=== PATIENT | female | born 1970 | race Hispanic/Latino ===

== ENCOUNTER → 2018-03-12 | Outpatient (CLI) | payer BC | LOC: MAMMO 08:57 | PROVIDERS: ATTEND Internal Medicine | DX: Z12.31 Encounter for screening mammogram for malignant neoplasm of breast (principal) | CPT/HCPCS: 77067 ==

== ENCOUNTER → 2018-04-08 | Outpatient (CLI) | payer BC ==
--- NOTE | 2018-04-08 16:14 | Diagnostic Imaging Report ---
#[id number] - MGDXLT #UNILATERAL LEFT DIGITAL DIAGNOSTIC MAMMOGRAM WITH SPOT COMPRESSION AND MAGNIFICATION: 04/08/2018 Comparison is made to exams dated: 03/12/2018 mammogram - [facility] and 04/02/2015 mammogram - [facility]. Current study contains 3 films. The tissue of the left breast is heterogeneously dense. This may lower the sensitivity of mammography. The area of new calcification in the left breast may be vascular in origin. A one time interim 6 month followup mammogram is recommended to demonstrate stability. Scattered additional calcifications appear bening. IMPRESSION: PROBABLY BENIGN A follow-up mammogram in 6 months is recommended to demonstrate stability. The patient has been or will be notified of the results. Venkat Childress Jr., D.O. cw/:04/08/2018 15:03:13 Kinesiotherapist: Karissa SOFIA)(Becca), [facility] letter sent: Followup Recommended Mammogram BI-RADS: 3 Probably benign
== END ==
LOC: MAMMO 12:47
PROVIDERS: ATTEND Internal Medicine
DX: R92.8 Other abnormal and inconclusive findings on diagnostic imaging of breast (principal)

== ENCOUNTER → 2019-01-06 | Outpatient (CLI) | payer BC ==
--- NOTE | 2019-01-07 09:09 | Diagnostic Imaging Report ---
#[id number] - MGDXLT #UNILATERAL LEFT DIGITAL DIAGNOSTIC MAMMOGRAM WITH CAD WITH MAGNIFICATION SHORT-TERM FOLLOW-UP: 01/06/2019 Comparison is made to exams dated: 04/08/2018 mammogram, 03/12/2018 mammogram - [facility] and 04/02/2015 mammogram - [facility]. Current study contains 6 films. The tissue of the left breast is heterogeneously dense. This may lower the sensitivity of mammography. Current study was also evaluated with a Computer Aided Detection (CAD) system. There is little interval change in several areas of grouped calcifications. Most of these do not have a suspicious shape. No significant masses, calcifications, or other findings are seen in the breast. IMPRESSION: PROBABLY BENIGN A follow-up mammogram in 6 months is recommended to demonstrate stability. The patient has been notified of the results and the need for followup. Venkat Childress Jr., D.O. cw/:01/06/2019 17:42:01 Aircraft Maintenance Manager: Karissa OVALLE(Kartik)(Becca), [facility] letter sent: Followup Recommended Mammogram BI-RADS: 3 Probably benign
== END ==
LOC: MAMMO 11:53
PROVIDERS: ATTEND Internal Medicine
DX: Z12.31 Encounter for screening mammogram for malignant neoplasm of breast (principal)

== ENCOUNTER → 2019-01-29 | Outpatient (CLI) | payer BC ==
--- NOTE | 2019-01-29 16:19 | Diagnostic Imaging Report ---
Exam: Head CT without contrast History: Trauma sharp headache with pain and pressure. Comparison studies: None Technique: Axial images were obtained from the skull base to the vertex. Coronal and sagittal images reconstructed from the axial data. Dose modulation, iterative reconstruction, and/or weight based adjustment of the mA/kV was utilized to reduce the radiation dose to as low as reasonably achievable. Radiation dose: Total DLP: 921 mGy*cm. Estimated effective dose: DLP x 0.015 Intravenous contrast: None Findings: Scalp: No abnormalities. Bones: No fractures, blastic or lytic lesions. Brain sulci: Appropriate for age. Ventricles: Normal in size and configuration. No hydrocephalus. Extra-axial spaces: No masses, no fluid collection. Parenchyma: No abnormal densities. No masses, acute hemorrhage, acute or chronic vascular insults. Sellar/suprasellar region: No abnormalities. Craniocervical junction: Patent foramen magnum. No Chiari one malformation. Middle ear and mastoid cavities: Clear. Included paranasal sinuses: The sphenoid sinuses, partially imaged ethmoid air cells, left frontal sinus and hypoplastic right frontal sinus are clear. IMPRESSION: No intracranial abnormalities. Signed by: Dr. Binu Mesa M.D. on 01/29/2019 4:16 PM
== END ==
LOC: CT 15:06
PROVIDERS: ATTEND Internal Medicine
DX: R51 Headache (principal)
CPT/HCPCS: 70450

== ENCOUNTER 2019-02-02 16:37 | Emergency (ER) | payer BC ==
[~2019-02-02] VITALS: Ht 149.9 cm; Wt 87.1 kg
--- OUTSIDE RECORDS SUMMARY | 2019-02-02 16:39 | XMS REPORT ---
[facility] Address Unknown Phone Unavailable Care Team Providers Care Heading Machine Operator Name Role Phone Becca AVALOS Unavailable Unavailable Problems This patient has no known problems. Allergies, Adverse Reactions, Alerts This patient has no known allergies or adverse reactions. Medications This patient has no known medications. Results Test Description Test Time Test Comments Text Results Atomic Results Result Comments CT BRAIN WO 2019-01-29 16:12:00 [place] [address] Patient Name: GWENDOLYN HICKS MR #: [id number] : 1970 Age/Sex: 48/F Req #: [id number] Adm Physician: Ordered by: BRANDON AVALOS MD Report #: [id number] Location: CT Room/Bed: Procedure: [id number] CT/CT BRAIN WO Exam Date: 01/29/19 Exam Time: 1530 REPORT STATUS: Signed Exam: Head CT without contrast History: Trauma sharp headache with pain and pressure. Comparison studies: None Technique: Axial images were obtained from the skull base to the vertex. Coronal and sagittal images reconstructed from the axial data. Dose modulation, iterative reconstruction, and/or weight based adjustment of the mA/kV was utilized to reduce the radiation dose to as low as reasonably achievable. Radiation dose: Total DLP: 921 mGy*cm. Estimated effective dose: DLP x 0.015 Intravenous contrast: None Findings: Scalp: No abnormalities. Bones: No fractures, blastic or lytic lesions. Brain sulci: Appropriate for age. Ventricles: Normal in size and configuration. No hydrocephalus. Extra-axial spaces: No masses, no fluid collection. Parenchyma: No abnormal densities. No masses, acute hemorrhage, acute or chronic vascular insults. Sellar/suprasellar region: No abnormalities. Craniocervical junction: Patent foramen magnum. No Chiari one malformation. Middle ear and mastoid ca vities: Clear. Included paranasal sinuses: The sphenoid sinuses, partially imaged ethmoid air cells, left frontal sinus and hypoplastic right frontal sinus are clear. IMPRESSION: No intracranial abnormalities. Signed by: Dr. Alma Mesa M.D. on 01/29/2019 4:16 PM Dictated By: ALMA MESA MD 15 Transcribed By: CHINA on 01/29/191615 COPY TO: BRANDON AVALOS MD MAMMOGRAPHY DIGITAL DX UNI LT 2019-01-06 16:11:00 [place] [address] Patient Name: GWENDOLYN HICKS MR #: [id number] : 1970 Age/Sex: 48/F Req #: [id number] Adm Physician: Ordered by: BRANDON AVALOS MD Report #: [id number] Location: [facility] Room/Bed: Procedure: [id number] MG/MAMMOGRAPHY DIGITAL DX UNI LT Exam Date: 01/06/19 Exam Time: 1600 REPORT STATUS: Signed #[id number] - MGDXLT #UNILATERAL LEFT DI GITAL DIAGNOSTIC MAMMOGRAM WITH CAD WITH MAGNIFICATION SHORT-TERM FOLLOW-UP: 01/06/2019 Comparison is made to exams dated: 04/08/2018 mammogram, 03/12/2018 mammogram - [facility] and 04/02/2015 mammogram - [facility]. Current study contains 6 films. The tissue of the left breast is heterogeneously dense. This may lower the sensitivity of mammography. Current study was also evaluated with a Computer Aided Detection (CAD) system. There is little interval change in several areas of grouped calcifications. Most of these do not have a suspicious shape. No significant masses, calcifications, or other findings are seen in the breast. IMPRESSION: PROBABLY BENIGN A follow-up mammogram in 6 months is recommended to demonstrate stability. The patient has been notified of the results and the need for followup. Daren Childress Jr., D.O. cw/:01/06/2019 17:42:01 Property Caretaker: Karissa OVALLE (R)(Becca), [facility] letter sent: Followup Recommended Mammogram BI-RADS: 3 Probably benign Dictated By: DAREN CHILDRESS DO 41 Transcribed By: JUAN on 01/06/191741 COPY TO: BRANDON AVALOS MD MAMMOGRAPHY DIGITAL DX UNI LT [place] [address] Patient Name: GWENDOLYN HICKS MR #: [id number] : 1970 Age/Sex: 47/F Req #: [id number] Adm Physician: Ordered by: BRANDON AVALOS MD Report #: [id number] Location: MAMMO Room/Bed: Procedure: [id number] MG/MAMMOGRAPHY DIGITAL DX UNI LT Exam Date: 04/08/18 Exam Time: 1313 REPORT STATUS: Signed #[id number] - MGDXLT #UNILATERAL LEFT DIGITAL DIAGNOSTIC MAMMOGRAM WITH SPOT COMPRESSION AND MAGNIFICATION: 04/08/2018 Comparison is made to exams dated: 03/12/2018 mammogram - [facility] and 04/02/2015 mammogram - [facility]. Current study contains 3 films. The tissue of the left breast is heterogeneously dense. This may lower the sensitivity of mammography. The area of new calcification in the left breast may be vascular in origin. A one time interim 6 month followup mammogram is recommended to demonstrate stability. Scattered additional calcifications appear bening. IMPRESSION: PROBABLY BENIGN A follow-up mammogram in 6 months is recommended to demonstrate stability. The patient has been or will be notified of the results. Daren Childress Jr., D.O. cw/:04/08/2018 15:03:13 Property Caretaker: Karissa SOFIA)(Becca), [facility] letter sent: Followup Recommended Mammogram BI-RADS: 3 Probably benign Dictated By: DAREN CHILDRESS DO 1503 Transcribed By: JUAN on 04/08/18 1503 COPY TO: BRANDON AVALOS MD MAMMOGRAPHY DIGITAL SCR BILAT [place] [address] Patient Name: GWENDOLYN HICKS MR #: [id number] : 1970 Age/Sex: 47/F Req #: [id number] Adm Physician: Ordered by: BRANDON AVALOS MD Report #: [id number] Location: MAMMO Room/Bed: Procedure: [id number] MG/MAMMOGRAPHY DIGITAL SCR BILAT Exam Date: 03/12/18 Exam Time: 921 REPORT STATUS: Signed #[id number] - MGSCRBIL #BILATERAL DIGITAL SCREENING MAMMOGRAM WITH CAD: 03/12/2018 CLINICAL: Routine screening. Comparison is made to exams dated: 04/02/2015 mammogram, 01/03/2013 mammogram and 09/14/2011 mammogram - [facility]. Current study contains 5 films. The tissue of both breasts is heterogeneously dense. This may lower the sensitivity of mammography. Current study was also evaluated with a Computer Aided Detection (CAD) system. There is an amorphous calcification in the left breast central to the nipple posterior depth that is new compared to the most recent 2015 mammogram. Scattered benign calcification in both breasts are again noted. No other significant masses, calcifications, or other findings are seen in either breast. IMPRESSION: INCOMPLETE: NEEDS ADDITIONAL IMAGING EVALUATION The amorphous calcification in the left breast is indeterminate. Spot magnification views are recommended. The patient will be contacted by the Mammography Department to schedule this appointment. Daren Childress Jr., D.O. cw/:03/21/2018 12:19:18 Property Caretaker: Karissa OVALLE(Kartik)(Becca), [facility] letter sent: Additional Imaging Needed Mammogram BI-RADS: 0 Indeterminate Dictated By: DAREN CHILDRESS DO 1219 Transcribed By: JUAN on 03/21/18 1219 COPY TO: BRANDON AVALOS MD US ABDOMEN COMPLETE [place] [address] Patient Name: GWENDOLYN HICKS MR #: [id number] : 1970 Age/Sex: 46/F Req #: [id number] Adm Physician: Ordered by: BRANDON AVALOS MD Report #: [id number] Location: US Room/Bed: Procedure: [id number] US/US ABDOMEN COMPLETE Exam Date: 08/07/17 Exam Time: 0830 REPORT STATUS: Signed PROCEDURE: ABDOMINAL ULTRASOUND COMPARISON: 01/24/2016. INDICATIONS: Abdominal Pain FINDINGS: Liver: 18.3 cm in length in the right midclavicular line. Increased hepatic parenchymal echogenicity. No focal mass. Main portal vein: 1.3 cm in caliber. Hepatopedal flow. Gallbladder: 6 mm polypoid lesion projecting from the anterior wall is unchanged compared to 01/24/2016. No shadowing calculus, wall thickening, or pericholecystic fluid. Common Bile Duct: 0.4 cm in caliber. No echogenic filling defect. Sonographic Walton's sign: Reported as negative. Right kidney: 11.7 cm in length. No solid or cystic mass, echogenic calculi, or hydronephrosis. Normal renal cortical echogenicity. Left kidney: 12.3 cm in length. No solid or cystic mass, echogenic calculi, or hydronephrosis. Normal renal cortical echogenicity. Spleen: 11.8 cm in length. Uniform parenchymal echotexture. Pancreas: The visualized portions of the pancreas are normal. Inferior vena cava: Patent. Aorta: Non-aneurysmal. Ascites: None. CONCLUSION: Hepatomegaly with hepatic steatosis. 6 mm gallbladder polyp is unchanged relative to 01/24/2016. Annual followup right upper quadrant ultrasound is suggested to assess for continued stability. Dictated by: Alma Louis M.D. on 08/07/2017 at 9:25 Electronically approved by: Alma Louis M.D. on 08/07/2017 at 9:25 Dictated By: ALMA LOUIS MD 4 Transcribed By: SONG on 08/07/17924 COPY TO: BRANDON AVALOS MD
[2019-02-02] MEDS ORDERED: KETOROLAC TROMETHAMINE 30 MG/ML VIAL IV STA ×2 (17:16→22:21)
[2019-02-02] MEDS ORDERED: SODIUM CHLORIDE 0.9% 1000ML 1,000 ML IV STA (17:16)
[2019-02-02] MEDS ORDERED: METOCLOPRAMIDE HCL 10 MG/2ML VIAL IV ONE ×2 (17:30→22:30)
[2019-02-02] MEDS ORDERED: DIPHENHYDRAMINE HCL INJ 50 MG/ML VIAL IV ONE ×2 (17:30→22:30)
[2019-02-02 19:37] LABS: CLARITY,URINE CLEAR (CLEAR); COLOR,URINE YELLOW (YELLOW); LEUKOCYTE ESTERASE ,URINE NEGATIVE (NEGATIVE)
[2019-02-02 19:38] LABS: BILIRUBIN,URINE NEGATIVE (NEGATIVE); KETONES,URINE NEGATIVE (NEGATIVE); NITRITE,URINE NEGATIVE (NEGATIVE); PROTEIN,URINE DIPSTICK NEGATIVE (NEGATIVE); URINE UROBILINOGEN 0.2 mg/dL (0.2 - 1)
[2019-02-02 19:46] LABS: EPITHELIAL CELLS,URINE FEW /LPF
[2019-02-02] MEDS ORDERED: METOCLOPRAMIDE HCL 10 MG/2ML VIAL ONE (22:04)
[2019-02-02] MEDS ORDERED: KETOROLAC TROMETHAMINE 30 MG/ML VIAL ONE (22:04)
[2019-02-02] MEDS ORDERED: SODIUM CHLORIDE 0.9% 1000ML 1,000 ML ONE (22:05)
[2019-02-02] MEDS ORDERED: DIPHENHYDRAMINE HCL INJ 50 MG/ML VIAL ONE (22:05)
[2019-02-02] MEDS ORDERED: SODIUM CHLORIDE 0.9% 1000ML 1,000 ML IV SCH (22:30)
== END 2019-02-02 23:45 | disposition home or self-care (01) ==
LOC: ER 16:37
DX: G44.89 Other headache syndrome (principal); G43.909 Migraine, unspecified, not intractable, without status migrainosus; I10 Essential (primary) hypertension; E11.9 Type 2 diabetes mellitus without complications; K21.9 Gastro-esophageal reflux disease without esophagitis
CPT/HCPCS: 81001; 99283; J1200; J1885; J2765; J7030

== ENCOUNTER → 2019-08-17 | Outpatient (CLI) | payer BC ==
--- NOTE | 2019-08-18 09:13 | Diagnostic Imaging Report ---
#[id number] - MGDXBIL #BILATERAL DIGITAL DIAGNOSTIC MAMMOGRAM WITH CAD: 08/17/2019 Comparison is made to exams dated: 01/06/2019 mammogram, 04/08/2018 mammogram and 03/12/2018 mammogram - [facility]. Current study contains 8 films. There are scattered fibroglandular elements in both breasts. Current study was also evaluated with a Computer Aided Detection (CAD) system. Benign appearing calcifications are noted bilaterally. There are stable grouped fine calcifications in the left breast at 6 o'clock posterior depth. No other significant masses, calcifications, or other findings are seen in either breast. IMPRESSION: PROBABLY BENIGN The stable grouped fine calcifications in the left breast are probably benign. A follow-up in 6 months is recommended. A follow-up mammogram in 6 months is recommended to demonstrate stability. The patient has been or will be notified of the results. JAREK ESPANA M.D. ct/penrad:08/17/2019 18:58:38 Pallet Sorter: Karissa OVALLE(Kartik)(Becca), [facility] letter sent: Followup Recommended Mammogram BI-RADS: 3 Probably benign
== END ==
LOC: MAMMO 14:48
PROVIDERS: ATTEND Internal Medicine
DX: N64.59 Other signs and symptoms in breast (principal)
CPT/HCPCS: 77066

== ENCOUNTER → 2019-10-06 | Outpatient (CLI) | payer BC ==
--- NOTE | 2019-10-06 09:44 | Diagnostic Imaging Report ---
TECHNIQUE: Magnetic resonance imaging of the RIGHT KNEE was performed WITHOUT injected contrast. HISTORY: Right knee pain COMPARISON: None available. FINDINGS: LIGAMENTS AND TENDONS: ACL: Intact PCL: Intact Collateral ligaments: Intact Iliotibial band: Unremarkable Popliteal tendon: Intact Extensor mechanism: Intact JOINT: Menisci: Medial: Complex tearing of the posterior horn with extrusion Lateral: Intact Articular Cartilage: Medial Compartment: Diffuse partial-thickness cartilage loss with areas of full-thickness fissuring. Lateral Compartment: Diffuse partial-thickness cartilage loss Patellofemoral Compartment: High-grade focal fissure and delamination at the patellar apex. Joint Fluid: Small joint effusion. BONE: No focal or infiltrative bone marrow replacing abnormality. No acute fracture. SOFT TISSUES: Otherwise, unremarkable. IMPRESSION: Medial meniscus complex tearing to the posterior horn with extrusion results in diffuse medial compartment cartilage loss. Signed by: Dr. Freddy Abdi M.D. on 10/06/2019 9:41 AM
--- NOTE | 2019-10-06 10:10 | Diagnostic Imaging Report ---
EXAM: ANKLE 3+ VIEWS LEFT DATE: 10/06/2019 8:25 AM INDICATION: Osteoarthritis left foot COMPARISON: None FINDINGS: There is no evidence for acute fracture or dislocation. The ankle mortise is maintained. No focal lytic or blastic abnormality is identified. Posterior calcaneal spurring noted. The surrounding soft tissues are unremarkable without evidence for radiopaque foreign body. IMPRESSION: No acute radiographic abnormality identified within the left ankle. Signed by: Dr. Sea Pavon MD on 10/06/2019 10:07 AM
--- NOTE | 2019-10-06 10:17 | Diagnostic Imaging Report ---
EXAM: FOOT LEFT COMPLETE DATE: 10/06/2019 8:25 AM INDICATION: Pain COMPARISON: None FINDINGS: There is no evidence for acute fracture or dislocation. Bony mineralization is within normal limits. No focal lytic or blastic abnormality is identified. Posterior calcaneal spurring noted. The soft tissues are unremarkable without evidence for radiopaque foreign body. IMPRESSION: No acute radiographic abnormality identified within the left foot. Signed by: Dr. Sea Pavon MD on 10/06/2019 10:13 AM
== END ==
LOC: MRI 08:16
PROVIDERS: ATTEND Internal Medicine
DX: M19.072 Primary osteoarthritis, left ankle and foot (principal); S83.281A Other tear of lateral meniscus, current injury, right knee, initial encounter

== ENCOUNTER → 2019-10-26 | Outpatient (CLI) | payer BC ==
--- NOTE | 2019-10-26 10:19 | Diagnostic Imaging Report ---
EXAM: US ABDOMEN COMPLETE DATE: 10/26/2019 8:37 AM INDICATION: Abnormal liver enzymes COMPARISON: None TECHNIQUE: Transverse and longitudinal castro scale and color doppler sonographic images of the upper abdomen were obtained. FINDINGS: LIVER 18.7 cm in the right midclavicular line. Increased echogenicity of the liver with normal contour, no masses. SPLEEN 13.3 cm in maximum diameter. Normal echogenicity, no masses. GALLBLADDER No gallbladder wall thickening, distension, stone, or pericholecystic fluid. Negative reported sonographic Walton's sign. The gallbladder wall measures 3mm BILE DUCTS No intra nor extra-hepatic biliary dilation. Common bile duct measures 3mm PANCREAS: Visualized portions are normal. RIGHT KIDNEY: 11.4 cm Echogenicity: Normal Collecting System: No hydronephrosis Stones: None Cyst/Mass: None LEFT KIDNEY: 12.4 cm Echogenicity: Normal Collecting System: No hydronephrosis Stones: None Cyst/Mass: None VESSELS: Aorta: Visualized portions are within normal size limits Inferior Vena Cava: Visualized portions are normal Main Portal Vein: 1.2 cm, normal size with hepatopetal flow. FREE FLUID: None IMPRESSION: Hepatomegaly and mild hepatic steatosis. No sonographic evidence of cholelithiasis or cholecystitis. Signed by: Marlon Avila MD on 10/26/2019 10:17 AM
== END ==
LOC: US 08:28
PROVIDERS: ATTEND Internal Medicine
DX: R74.8 Abnormal levels of other serum enzymes (principal)
CPT/HCPCS: 76700

== ENCOUNTER → 2020-07-21 | Outpatient (CLI) | payer BC ==
--- NOTE | 2020-07-22 15:58 | Diagnostic Imaging Report ---
#[id number] - MGDXBIL #BILATERAL DIGITAL DIAGNOSTIC MAMMOGRAM WITH CAD: 07/21/2020 Comparison is made to exams dated: 08/17/2019 mammogram, 01/06/2019 mammogram, 04/08/2018 mammogram and 03/12/2018 mammogram - [facility]. There are scattered fibroglandular elements in both breasts. Current study was also evaluated with a Computer Aided Detection (CAD) system. There is a benign lymph node in both breasts. There also are benign scattered calcifications in both breasts. No significant masses, calcifications, or other findings are seen in either breast. There has been no significant interval change. IMPRESSION: BENIGN There is no mammographic evidence of malignancy. Return to annual mammogram screening schedule is recommended. The patient will be notified by letter of the results. CRISTY gilmore/liza:07/22/2020 09:46:10 Box Strapper: Karissa OVALLE(Kartik)(M), [facility] letter sent: Compared to Prior B9 Mammogram BI-RADS: 2 Benign
== END ==
LOC: MAMMO 08:02
PROVIDERS: ATTEND Internal Medicine
DX: R92.1 Mammographic calcification found on diagnostic imaging of breast (principal)
CPT/HCPCS: 77066

== ENCOUNTER → 2021-12-12 | Outpatient (CLI) | payer BC | LOC: MAMMO 08:12 | PROVIDERS: ATTEND Internal Medicine | DX: Z12.31 Encounter for screening mammogram for malignant neoplasm of breast (principal) | CPT/HCPCS: 77067 ==

== ENCOUNTER → 2025-04-22 | Outpatient (REF) | payer BC | LOC: MAMMO 10:31 | PROVIDERS: ATTEND Internal Medicine | DX: Z12.31 Encounter for screening mammogram for malignant neoplasm of breast (principal) | CPT/HCPCS: 77067 ==